=== PATIENT | female | born 1975 ===

== ENCOUNTER 2017-05-07 10:39 | Emergency (ER) | payer MEDICAID, SELFPAY ==
--- NOTE | 2017-05-07 13:08 | OBHP ---
Datetime: 05/07/2017 12:00 IP Adm Impression: , intrauterine ; Intact Membranes IP Admit Plan: Discharge home Admit Comment, IP Provider: 41 yo with IUP at 36+2 weeks gestational age with MAHENDRA 06/02/17 p resented to [facility] due to abdominal pain that started overnight. States pain is pressure-like in nature , and does not feel like contractions she has had with past pregnancies. She states she is scared the baby is not head down. Reports good movement, denies vaginal bleeding, loss of fluid, and regu lar contractions. care: [facility] (chart rev'd) Past OB hx: NVD at 38 weeks 1998, NVD at 40 weeks 2001, SAB at 15 weeks 2012, NVD at 36 weeks 2013 . Denies hx [employer] problems. Past Med hx: denies medical conditions Past surg hx: denies Fam hx: denies chronic illness in family Social hx: denies tobacco, alcohol, drug use Medications: PNV Allergies: NKDA ROS: denies headache, dizziness, chest pain, shortness of breath, nausea, vomiting, diarrhea, burn ing with urination, leg/calf pain. PE: VSS Gen: alert, oriented, NAD CV: S1S2, RRR Resp: clear to auscultation bilaterally, normal effort Abd: gravid, nontender Ext: no edema, no tenderness SVE: cervix high, closed Bedside sono done- vertex presentation Assessment: 41 yo with IUP at 36+2 weeks gestational age; no signs of or active la bor; abdominal pain in . Plan: Discharge home with labor precautions; encourage follow up at next scheduled clinic appt. Pt seen/discussed with Dr. Ahn. [email or web address] OB Hospitalistnote: Pt seen with PGY1. Agree with note. MAHNDO Extremities - PN: Normal Abdomen - PN: Normal Back - PN: Normal Breast - PN: Not Done Lungs - PN: Normal Heart - PN: Normal Thyroid - PN: Not Done Neurologic - PN: Normal HEENT - PN: Normal General - PN: Normal Presentation-Admit: Vertex FHR - Baseline A Provider: 125 Membranes, Provider: Intact Comments, ACOG Physical Exam: SVE: cervix high, closed Bedside sono done- vertex presentation Pool Provider: Negative IP Hx Assessment: The History has been Reviewed and is Current Vital Signs Provider: Reviewed; Within Normal Limits IP Chief Complaint: Maternal discomfort NICHD Variability Prov Fetus A: Moderate 6-25bpm NICHD Accel Fetus A IP Provider: [id number] Dilatation, Provider: 0 Effacement, Provider: 0 Station, Provider: high Genitourinary Exam: Normal DTRs - PN: Not Done
--- NOTE | 2017-05-07 13:11 | OBDCSUM ---
Datetime: 05/07/2017 11:35 Discharged to, Provider: Home Follow up at, Provider: [facility] Disch Instr Activity: Normal activity Disch Instr Diet: Regular Discharge Diagnosis, Provider: False Labor - Undelivered Discharge Time: 05/07/2017 11:35 Follow up in weeks, Provider: Next Scheduled Appointment Disch Referrals: None
[2017-05-07 20:26] VITALS: BP 112/74; PULSE 98
== END 2017-05-07 11:35 | disposition home or self-care (01) ==
LOC: H.EROB2 10:39
DX: O26.93 Pregnancy related conditions, unspecified, third trimester (principal); R10.2 Pelvic and perineal pain; Z3A.36 36 weeks gestation of pregnancy